=== PATIENT | male | born 1980 | race Caucasian/White ===

== ENCOUNTER 2016-11-19 18:17 | Emergency (ER) | payer OTHER, SELFPAY ==
[2016-11-19] MEDS ORDERED: Adacel (T-DAP) 0.5 ML VIAL ONE (18:32)
[2016-11-19] MEDS ORDERED: Ondansetron ODT 4 MG TAB ONE (19:12)
[2016-11-19] MEDS ORDERED: Acetaminophen/Codeine 30-300mg Tablet ONE (20:06)
--- NOTE | 2016-11-19 20:20 | RAD ---
RADIOGRAPH LEFT FIRST DIGIT THREE VIEWS: History: 35-year-old male status post traumatic injury to the left thumb. FINDINGS: No dislocation and no acute fracture. No radiopaque foreign body. IMPRESSION: 1. No fracture. 2. 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 3. 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 POS: [facility]
== END 2016-11-19 20:08 | disposition home or self-care (01) ==
LOC: BURERS 18:17
DX: S61.012A Laceration without foreign body of left thumb without damage to nail, initial encounter (principal); Z23 Encounter for immunization; W27.0XXA Contact with workbench tool, initial encounter
CPT/HCPCS: 12002; 90471; 90715; Q0162

== ENCOUNTER 2016-11-30 17:44 | Emergency (ER) | payer OTHER ==
[2016-11-30] MEDS ORDERED: Bacitracin Zinc 1 Packet ONE (18:00)
== END 2016-11-30 18:05 | disposition home or self-care (01) ==
LOC: BURERS 17:44
DX: S61.012D Laceration without foreign body of left thumb without damage to nail, subsequent encounter (principal); W45.8XXD Other foreign body or object entering through skin, subsequent encounter